=== PATIENT | female | born 1955 | race Caucasian/White ===

== ENCOUNTER → 2020-02-03 | Outpatient (CLI) | payer OTHER ==
[~2020-02-03] MED LIST: ASPIR LOW81 MG PO; BENADRYL25 MG PO; LEVOTHYROXIN0.112 MG PO; LISINOPRIL/HCTZ1 TA3 PO; MEDROL DOSEPAK4 MG PO
== END | disposition home or self-care (01) ==
LOC: COVID19 11:09
PROVIDERS: ATTEND Internal Medicine
DX: Z20.828 Contact with and (suspected) exposure to other viral communicable diseases (principal)

== ENCOUNTER 2020-10-21 15:44 | Inpatient (IN) | payer OTHER ==
[~2020-10-21] VITALS: Ht 160 cm; Wt 123.9 kg
[2020-10-21 16:05] VITALS: BP 137/71
[2020-10-21 16:47] LABS: BASO % 0.2 % (0.0-1.0); HEMATOCRIT 43.8 % (37.0-47.0); LYMPH # 0.6 10*3/uL (1.3-4.4); LYMPH % 9.3 % (27.0-41.0); MEAN CELL VOLUME 87.4 fl (81.0-99.0); MEAN CORPUSCULAR HGB 28.5 pg (27.0-31.0); MEAN CORPUSCULAR HGB CONC 32.6 g/dl (33.0-37.0); MEAN PLATELET VOLUME 10.1 fl (9.6-12.3); MONO # 0.4 10*3/uL (0.1-1.0); MONO % 6.6 % (3.0-9.0); NEUT % 83.7 % (47.0-73.0); PLATELET COUNT AUTOMATED 148 10*3/uL (130-400); RED BLOOD COUNT 5.01 10*6/uL (4.10-5.10); RED CELL DISTRI WIDTH 14.1 % (0-14.5); WHITE BLOOD COUNT 5.9 10*3/uL (4.8-10.8)
[2020-10-21 17:03] LABS: ALKALINE PHOSPHATASE 94 U/L (45-117); BUN 14 mg/dl (7-24); CHLORIDE 95 mmol/L (98-107); CREATININE 0.87 mg/dL (0.55-1.02); LIPASE 165 U/L (73-393); POTASSIUM 3.3 mmol/L (3.5-5.1); SGOT/AST 48 IU/L (3-35); SGPT/ALT 45 U/L (12-78); SODIUM 133 mmol/L (136-145); TROPONIN I < 0.015 ng/ml (<0.045)
[2020-10-21 17:27] LABS: BILIRUBIN Negative (Negative); BLOOD 2+ (Negative); CLARITY Cloudy (Clear); COLOR Yellow (Yellow); GLUCOSE Negative (Negative); KETONE 1+ (Negative); LEUKO ESTERASE 3+ (Negative); NITRITE Negative (Negative); PH 6.5 (4.5-8.0); SPECIFIC GRAVITY 1.015 (1.001-1.030)
[2020-10-21 17:43] LABS: BACTERIA 3+; EPITHELIAL CELLS 21-30; RBC 21-30 rbc/hpf (0-2); WBC 51-100 wbc/hpf (0-5)
[2020-10-21 20:38] VITALS: BP 132/65
[2020-10-21 22:00] VITALS: BP 115/59
[2020-10-21] MEDS ORDERED: EXEMESTANE25 M2 PO (23:11)
[2020-10-22] VITALS: BP 143/46
[2020-10-22 07:29] LABS: BASO % 0.2 % (0.0-1.0); HEMATOCRIT 43.8 % (37.0-47.0); LYMPH # 0.9 10*3/uL (1.3-4.4); MEAN CELL VOLUME 86.7 fl (81.0-99.0); MEAN CORPUSCULAR HGB 27.9 pg (27.0-31.0); MEAN CORPUSCULAR HGB CONC 32.2 g/dl (33.0-37.0); MEAN PLATELET VOLUME 10.4 fl (9.6-12.3); MONO # 0.3 10*3/uL (0.1-1.0); NEUT # 3.6 10*3/uL (2.3-7.9); NEUT % 74.4 % (47.0-73.0); PLATELET COUNT AUTOMATED 143 10*3/uL (130-400); RED BLOOD COUNT 5.05 10*6/uL (4.10-5.10); RED CELL DISTRI WIDTH 14.3 % (0-14.5); WHITE BLOOD COUNT 4.8 10*3/uL (4.8-10.8)
[2020-10-22 07:30] LABS: ALBUMIN 2.8 gm/dl (3.1-4.5); BUN 13 mg/dl (7-24); CHLORIDE 96 mmol/L (98-107); CREATININE 0.82 mg/dL (0.55-1.02); POTASSIUM 2.9 mmol/L (3.5-5.1); SGOT/AST 53 IU/L (3-35); SGPT/ALT 43 U/L (12-78); SODIUM 133 mmol/L (136-145)
[2020-10-22 07:33] LABS: ALKALINE PHOSPHATASE 82 U/L (45-117); CHOLESTEROL 87 mg/dL (<200); LDH 255 U/L (84-246); LDL CHOLESTEROL 54 mg/dL (9-159); TOTAL PROTEIN 6.7 gm/dL (6.4-8.2); TRIGLYCERIDES 43 mg/dl (<150)
[2020-10-22 07:56] LABS: FERRITIN 158.4 ng/mL (10.0-291.0)
[2020-10-22 08:00] VITALS: BP 124/57
[2020-10-22 08:02] LABS: VITAMIN D, 25-HYDROXY 31.9 ng/mL (30-100)
[2020-10-22 12:00] VITALS: BP 114/55
[2020-10-22 16:00] VITALS: BP 117/54
[2020-10-22 20:00] VITALS: BP 110/48
[2020-10-23] VITALS (7 sets, daily range): BP systolic 100–130; BP diastolic 53–80
[2020-10-23 06:55] LABS: HEMATOCRIT 43.8 % (37.0-47.0); MEAN CORPUSCULAR HGB 28.5 pg (27.0-31.0); MEAN CORPUSCULAR HGB CONC 32.4 g/dl (33.0-37.0); MEAN PLATELET VOLUME 10.1 fl (9.6-12.3); PLATELET COUNT AUTOMATED 151 10*3/uL (130-400); RED BLOOD COUNT 4.98 10*6/uL (4.10-5.10); RED CELL DISTRI WIDTH 13.7 % (0-14.5); WHITE BLOOD COUNT 3.9 10*3/uL (4.8-10.8)
[2020-10-23 07:16] LABS: ALBUMIN 2.7 gm/dl (3.1-4.5); ALKALINE PHOSPHATASE 84 U/L (45-117); BUN 13 mg/dl (7-24); CHLORIDE 100 mmol/L (98-107); POTASSIUM 3.4 mmol/L (3.5-5.1); SGOT/AST 44 IU/L (3-35); SGPT/ALT 41 U/L (12-78); SODIUM 139 mmol/L (136-145); TOTAL PROTEIN 6.7 gm/dL (6.4-8.2)
[2020-10-23 07:59] LABS: PLATELET SUFFICIENCY NORMAL (NORMAL); TOTAL CELLS COUNTED 100 #CELLS
[2020-10-23 08:00] LABS: BURR CELLS FEW
[2020-10-24] VITALS (7 sets, daily range): BP systolic 111–150; BP diastolic 60–84
[2020-10-24 06:08] LABS: BASO % 0.2 % (0.0-1.0); HEMATOCRIT 43.4 % (37.0-47.0); LYMPH # 0.8 10*3/uL (1.3-4.4); LYMPH % 12.8 % (27.0-41.0); MEAN CELL VOLUME 87.9 fl (81.0-99.0); MEAN CORPUSCULAR HGB 28.3 pg (27.0-31.0); MEAN CORPUSCULAR HGB CONC 32.3 g/dl (33.0-37.0); MEAN PLATELET VOLUME 10.4 fl (9.6-12.3); MONO # 0.5 10*3/uL (0.1-1.0); MONO % 7.6 % (3.0-9.0); NEUT # 5.1 10*3/uL (2.3-7.9); NEUT % 78.8 % (47.0-73.0); PLATELET COUNT AUTOMATED 175 10*3/uL (130-400); RED BLOOD COUNT 4.94 10*6/uL (4.10-5.10); RED CELL DISTRI WIDTH 13.8 % (0-14.5); WHITE BLOOD COUNT 6.5 10*3/uL (4.8-10.8)
[2020-10-24 06:23] LABS: ALBUMIN 2.5 gm/dl (3.1-4.5); ALKALINE PHOSPHATASE 74 U/L (45-117); BUN 13 mg/dl (7-24); CHLORIDE 100 mmol/L (98-107); CREATININE 0.64 mg/dL (0.55-1.02); POTASSIUM 3.3 mmol/L (3.5-5.1); SGOT/AST 39 IU/L (3-35); SGPT/ALT 34 U/L (12-78); SODIUM 138 mmol/L (136-145); TOTAL PROTEIN 6.4 gm/dL (6.4-8.2)
[2020-10-25 07:24] LABS: BUN 14 mg/dl (7-24); CHLORIDE 102 mmol/L (98-107); POTASSIUM 3.2 mmol/L (3.5-5.1); SODIUM 139 mmol/L (136-145)
[2020-10-25 08:00] VITALS: BP 121/80
[2020-10-25 12:00] VITALS: BP 129/58
[2020-10-25 16:00] VITALS: BP 113/71
[2020-10-25 20:00] VITALS: BP 127/72
[2020-10-26] VITALS: BP 132/74
[2020-10-26 06:49] LABS: HEMATOCRIT 42.6 % (37.0-47.0); MEAN CELL VOLUME 88.2 fl (81.0-99.0); MEAN CORPUSCULAR HGB 28.2 pg (27.0-31.0); MEAN CORPUSCULAR HGB CONC 31.9 g/dl (33.0-37.0); PLATELET COUNT AUTOMATED 225 10*3/uL (130-400); RED BLOOD COUNT 4.83 10*6/uL (4.10-5.10); RED CELL DISTRI WIDTH 13.9 % (0-14.5); WHITE BLOOD COUNT 5.2 10*3/uL (4.8-10.8)
[2020-10-26 07:18] LABS: BUN 17 mg/dl (7-24); CHLORIDE 103 mmol/L (98-107); CREATININE 0.55 mg/dL (0.55-1.02); POTASSIUM 3.6 mmol/L (3.5-5.1); SODIUM 140 mmol/L (136-145)
[2020-10-26 08:00] VITALS: BP 120/60
[2020-10-26 08:06] LABS: PLATELET SUFFICIENCY NORMAL (NORMAL); TOTAL CELLS COUNTED 100 #CELLS
[2020-10-26 12:00] VITALS: BP 138/74
[2020-10-26 16:00] VITALS: BP 118/56
[2020-10-26 20:00] VITALS: BP 144/80
[2020-10-27] VITALS: BP 134/78
[2020-10-27 06:42] LABS: BUN 16 mg/dl (7-24); CHLORIDE 103 mmol/L (98-107); CREATININE 0.65 mg/dL (0.55-1.02); POTASSIUM 3.4 mmol/L (3.5-5.1); SODIUM 139 mmol/L (136-145)
[2020-10-27 08:00] VITALS: BP 121/67
[2020-10-27 12:00] VITALS: BP 133/75
[2020-10-27 16:00] VITALS: BP 111/46
[2020-10-27] MEDS ORDERED: DECADRON6 M1 PO (17:22)
== END 2020-10-27 20:10 | disposition home health service (06) | DRG 137 ==
LOC: ED 15:44 → EDHOLD 19:30 → 4E 19:30
PROVIDERS: Hospitalist; Internal Medicine; Physician Assistant; ADMIT Internal Medicine; ATTEND Internal Medicine
PROC: XW033E5 Introduction of Remdesivir Anti-infective into Peripheral Vein, Percutaneous Approach, New Technology Group 5 (ICD-10-PCS; 2020-10-22)
PROC: 5A0935A Assistance with Respiratory Ventilation, Less than 24 Consecutive Hours, High Flow/Velocity Cannula (ICD-10-PCS; principal; 2020-10-25)
PROC: 5A0935A Assistance with Respiratory Ventilation, Less than 24 Consecutive Hours, High Flow/Velocity Cannula (ICD-10-PCS; 2020-10-26)
DX: U07.1 COVID-19 (principal); J96.01 Acute respiratory failure with hypoxia; E87.1 Hypo-osmolality and hyponatremia; J12.82 Pneumonia due to coronavirus disease 2019; N30.01 Acute cystitis with hematuria; F41.9 Anxiety disorder, unspecified; E87.6 Hypokalemia; E03.9 Hypothyroidism, unspecified; I10 Essential (primary) hypertension; R74.01 Elevation of levels of liver transaminase levels; E11.69 Type 2 diabetes mellitus with other specified complication; Z79.4 Long term (current) use of insulin; Z91.041 Radiographic dye allergy status; Z88.0 Allergy status to penicillin; Z85.3 Personal history of malignant neoplasm of breast; Z85.828 Personal history of other malignant neoplasm of skin; Z79.82 Long term (current) use of aspirin; Z79.899 Other long term (current) drug therapy; E44.0 Moderate protein-calorie malnutrition

== ENCOUNTER → 2022-08-13 | Outpatient (CLI) | payer OTHER ==
[~2022-08-13] MED LIST changes: +DECADRON6 M1 PO; +EXEMESTANE25 M2 PO
[2022-08-13 10:49] LABS: ACT PARTIAL THROMBO TIME 26.2 SECONDS (20.0-32.1)
== END | disposition home or self-care (01) ==
LOC: LAB 09:44
PROVIDERS: ATTEND Internal Medicine
DX: Z01.810 Encounter for preprocedural cardiovascular examination (principal)